=== PATIENT | male | born 1990 | race Two or more races ===

== ENCOUNTER 2024-08-21 13:31 | Emergency (ER) | payer MEDICAID, SELFPAY ==
[2024-08-21 13:45] VITALS: BP 129/87; PULSE 91; RESP 18; TEMP 36.9; O2SAT 98; BMI 31.9
--- NOTE | 2024-08-21 13:51 | PD.EDADULT ---
ED General RME/HPI General Chief complaint: General Adult/Misc Complain Stated complaint: FACIAL SWELLING Time Seen by Provider: 08/21/24 13:49 Arrival date/time: 08/21/24 13:31 CC: Swelling and tenderness to the left cheek HPI x 3 days insidious onset not sure if he scratched it last shaving was 3 days ago. Patient does have a full travis. Patient denies difficulty swallowing difficulty speaking. No OTC medicines taken. Local pain is 4-5 on a 10 scale. Note the patient is leaving to travel to [facility] for the next several weeks. Related Data Previous Rx's ?Medication ?Instructions ?Recorded cephalexin 500 mg capsule 500 mg PO TID #21 caps 08/21/24 ketorolac 10 mg tablet 10 mg PO Q8H #14 tabs 08/21/24 sulfamethoxazole 800 1 tab PO BID 7 days #14 tabs 08/21/24 mg-trimethoprim 160 mg tablet (Bactrim DS) Allergies Allergy/AdvReac Type Severity Reaction Status Date / Time No Known Allergies Allergy Verified 08/21/24 13:35 Review of Systems Review of Systems Narrative Review of Systems: GEN: No fever, no chills, no weight loss EYES: No discharge, no visual changes, no pain HEENT: +left cheek pain. No ear pain, no congestion, no sore throat PULM: No shortness of breath, no cough, no congestion CV: No chest pain, no dyspnea on exertion, no palpitations GI: No nausea, no vomiting, no diarrhea, no pain, no constipation : No frequency, no urgency, no dysuria MUSC/SKEL: No joint pain, no back pain SKIN: No rash PSYCH: No hallucinations, no depression HEME/LYMPH: No easy bleeding or bruising tendencies NEURO: No weakness, no headache Past Medical History Social History SMOKING STATUS: Never smoker ED Exam Narrative Physical exam: [General: Obese not in cot no acute distress Head normocephalic HEENT: Face: Mild asymmetry secondary to edema to the left cheek. There is an indurated area with a small 1 mm center, surrounding erythema approximately 1 cm in diameter. It is tender and firm to touch. Mouth: [place] moist membranes uvula is midline swallow is symmetrical, firmness palpated to the left buccal region. No dental caries or tooth erosion appreciated. All other subsystems of HEENT are within acceptable limits Neck is supple nontender, no edema erythema no JVD, no submandibular lymphadenopathy. ] Course Quality Measures none Orders Category Date Time Status MRSA Nasal Screen Stat Lab 08/21/24 13:49 Ordered cefTRIAXone [Rocephin] 1,000 mg Med 08/21/24 13:51 Discontinued Lidocaine 1% 20 ml [Xylocaine 1% 20 ML] 2.1 ml IM X1 Vital Signs Vital signs: Vital Signs Temperature 98.5 F 08/21/24 13:45 Pulse Rate 91 08/21/24 13:45 Respiratory Rate 18 08/21/24 13:45 Blood Pressure 129/87 H 08/21/24 13:45 Pulse Oximetry (%) 98 08/21/24 13:45 Oxygen Delivery Method Room Air 08/21/24 13:45 [facility] Patient data External records reviewed:: [facility] previous records Clinical information provided by:: patient Social determinants that could affect healthcare access:: none Patient has the following chronic illnesses:: None How is presenting disease/condition affected by chronic disease/condition?: uneffected by Evaluation data The following diagnostics were reviewed and interpreted by me:: lab results Lab and/or radiology exams considered but not ordered:: MRSA swab Interpretation Summary: This is an early cellulitis or abscess of the left cheek may or may not be started from an ingrown hair at the oral scratching. Medications Medications considered but not ordered:: None Medication administrations:: Medication Administration History Discontinued Medications Ceftriaxone Sodium 1,000 mg/ (Lidocaine HCl 2.1 ml) 0 mg IM X1 ONE Stop: 08/21/24 13:52 None Consultations Consultation(s) initiated? (list below): No Diagnosis Differential Diagnosis ED Complaint MDM: Buccal abscess, cheek cellulitis dental abscess Most likely diagnosis given after review of the tests above:: Cheek cellulitis Admission Indicated Admission indicated?: not indicated Explain why admission is indicated or not indicated:: Stable for outpatient follow-up Admission Request Was there a request for admission?: No Disposition Plan Disposition Plan: Discharge Discharge Attestation Discharge Attestation: The patient and all family members were given an opportunity to ask questions and understood the discharge instructions. Discharge instructions specifically effects, indications for sooner follow up or return to the emergency department, and the expected course of current diagnosis. Patient condition: Stable Medical Decision Making Differential Diagnosis Differential Diagnosis: Buccal abscess, cheek cellulitis dental abscess Discharge Plan Plan Patient Disposition: HOME (Self Care) Patient condition on transfer: Stable Prescriptions/Referrals Prescriptions/Med Rec: New cephalexin 500 mg capsule 500 mg PO TID Qty: 21 0RF sulfamethoxazole-trimethoprim [Bactrim DS] 800-160 mg tablet 1 tab PO BID 7 Days Qty: 14 0RF ketorolac 10 mg tablet 10 mg PO Q8H Qty: 14 0RF Rx Instructions: maximum total duration of 5 days from all oral, intranasal, or parenteral formulations Problem List Clinical Impression: Cellulitis of external cheek, left Patient/Caregiver Discharge Instructions Other Activity Instructions:: Take the medications as prescribed, have the cheek rechecked in 4 days for determination if there is an abscess component versus just cellulitis. If abscess, consider I&D. Education Materials: ED Cellulitis, Facial Print Language: Icelandic Stand Alone Forms: [employer]itra Award Info., Work/School Release, Patient Portal Info Letter PA/JOSEPH Supervising Physician PA/JOSEPH Supervising Physician: Ruslan Lagos ENP
[2024-08-21] MEDS: cefTRIAXone 1,000 MG, LIDOCAINE 1% 20 ML 2.1 ML IM (14:15)
[2024-08-21] MEDS: KETOROLAC INJ 60 MG/2 ML VIAL 30 MG IM (14:22)
== END 2024-08-21 16:39 | disposition home or self-care (01) ==
PROVIDERS: Emergency Provider Emergency Medicine
DX: L03.211 Cellulitis of face (principal)
CPT/HCPCS: 87081; 96372; 99283; J0696; J1885; J3490

== ENCOUNTER 2024-11-02 13:34 | Outpatient (AMB) | payer MEDICAID, SELFPAY ==
--- NOTE | 2024-11-02 14:29 | ACNOTE_ITS ---
Allergies/Meds Allergies & Medications Allergies No Known Allergies Allergy (Verified 08/21/24 13:35) IN Intake Visit Data Collection PCP or OBGYN visit in last 3 months: No Smoking Status Smoking Status: Never smoker Immunization / Flu Flu Vaccine in the Last 12 Months: Yes Flu Vaccine Exclusion Criteria: Already Received Past Medical History Social History SMOKING STATUS: Smoking status: Never smoker Patient Portal Questionaires PHQ-9 PHQ-2 Over the last 2 weeks, how often have you been bothered by any of the following problems? 1. Little interest or pleasure in doing things: not at all PHQ-9 8. Moving or speaking so slowly that other people could have noticed? - Or the opposite - being so fidgety or restless that you have been moving around a lot more than usual: not at all Source: Developed by Drs. Franklin Hyatt, Emili French, Elieser Guzman and colleagues, with an educational prince from [employer]. Social History Tobacco History Smoking Status: Never smoker Review of Systems Report any current symptoms Only answer those that you have currently: Past Medical History Past Medical History Have you ever been diagnosed with any of the following: History of Present Illness HPI Narrative 33 y/o male patient with significant medical history for HLD and perirectal abscess came in to establish care. Patient was told by his previous PCP that he had hyperlipidemia, was prescribed med which he stopped taking. Today patient states that has has been having numbness feeling of his back b/l below his scapula when he bends over. He believes this started x4 months ago after he started BJJ / gym. Patient states numbness goes away when he extends himself. Patient also states that has been having recurring perirectal abscess. Per patient, he had [place] regarding his [place]. Patient has tried p.o. antibiotics but has not helped. Patient denies fever, chills, nvd, constipation, diarrhea or other associated symptoms. 11/02/24: Patient complaining of recurring perirectal abscess, having pain with defecation and at rest. Patient recently completed course of antibiotics after seeing the general surgeon. Patient continues to have discomfort and pain affecting his daily living activities. High possibility of fistula given the recurring abscesses. Will need MRI to rule out fistula which may need surgical procedure. Review of Systems Review of Systems Systems Reviewed: All systems reviewed, normal except as documented Objective/Exam Narrative Physical exam: Constitutional: well-developed, well-nourished, in no acute distress, lying in bed HEENT: NCAT, EOMI, reactive round pupils b/l, patent nares b/l, moist mucous membranes Lung: CTAB, no wheezing, no rhonchi Heart: Regular S1S2, no murmurs, gallops, or rubs Abdomen: Soft, non-distended, non-tender, bowel sounds present throughout GI: bulging fibrous band around 12 o clock and 2 0 clock position,2 cm from anal verge, tenderness on palpation, Extremities: No cyanosis, clubbing, or edema, LE pulses present b/l Neurologic: No focal sensory or motor deficits noted, AOx3, appropriate affect Skin: Warm, dry, no lesions or rashes noted Assessment & Plan Diagnosis / Problem List (1) Anorectal fistula: Status: Acute Assessment & Plan: Patient with recurring perirectal abscess Previous fistula surgery done in [place] Patient has completed multiple courses of oral antibiotics with no resolution Plan: -Order MRI w/ contrast to rule-out fistula given patient's history Orders: Orders MR pelvis w con 11/02/24 K60.50 - Anorectal fistula, unspecified Additional Assessment Internal Medicine Attending Note: Case discussed with and agree with note and management plan of Resident Physician as per Resident's Note above. Issues of concern for present visit are as follows: Follow-up visit. Patient did see general surgeon and completed course of antibiotics for perirectal abscess, but continues to have discomfort and pain. Question if there may be a fistula which may need surgical intervention. Will check an MRI with contrast to rule out fistula given the patient's history. He previously had a fistula surgery done in [place] and has had multiple courses of oral antibiotics with no resolution. Domo Smith MD Physician Billing Established Patient Established Patient: E/M Level 3-CPT 31406
== END 2024-11-02 16:05 | disposition home or self-care (01) ==
LOC: HODAHC 13:34
PROVIDERS: Supervising Provider Internal Medicine; Visit Provider Internal Medicine
DX: K61.1 Rectal abscess (principal)
CPT/HCPCS: 99213; G0463

== ENCOUNTER → 2024-11-10 | Outpatient (CLI) | payer OTHER, SELFPAY ==
--- NOTE | 2024-11-10 07:30 | XR_ITS ---
Examination: MRI pelvis with intravenous contrast. MRI pelvis without intravenous contrast. Date and time of exam: November 10, 2024 at 0844 hrs. Indications: Anal rectal pain with fistulous disease, status post surgery 2021 Technique: Multiple axial, sagittal and coronal sections of the pelvis obtained. Transverse images, TR 6020, TE 107. T1 weighted transverse images, TR 582, TE 9.5. T2-weighted sagittal images, TR 4000, TE 105. T2-weighted sagittal images, TR 4000, TE 5. Coronal images, TR 4210, TE 107. Axial and coronal images are obtained post 19 cc intravenous injection, gadolinium. Findings: Mild stool in rectum No pelvic mass No free fluid in the pelvis Right perianal abscess, 14 x 8 mm without definite fistulous tract to the skin Mild peripheral enhancement Impression: Right perianal abscess 14 x 8 mm without definite fistulous tract to the skin
== END | disposition home or self-care (01) ==
PROVIDERS: PCP Nurse Practitioner Family; Referring Provider Nurse Practitioner Family; Visit Provider Nurse Practitioner Family
DX: K59.00 Constipation, unspecified (principal); K61.0 Anal abscess
CPT/HCPCS: 72197; A9579